=== PATIENT | female | born 1985 | race African-American/Black ===

== ENCOUNTER 2018-10-09 10:33 | Inpatient (IN) | payer OTHER ==
[2018-10-09 11:27] VITALS: BMI 34.9
--- NOTE | 2018-10-09 12:37 | HP ---
CIWA Score Nausea/Vomitin-Int. Nausea w/Dry Heave Muscle Tremors: 4-Moderate,w/Arms Extend Anxiety: 1-Mildly Anxious Agitation: 1-Slight > Activity Paroxysmal Sweats: No Perspiration Orientation: 0-Oriented Tacttile Disturbances: 1-Very Mild Itch/Numbness Auditory Disturbances: 0-None Visual Disturbances: 0-None Headache: 2-Mild CIWA-Ar Total Score: 13 - Admission Criteria OASAS Guidelines: Admission for Medically Managed Detox: Requires at least one of the followin. CIWA greater than 12 2. Seizures within the past 24 hours 3. Delirium tremens within the past 24 hours 4. Hallucinations within the past 24 hours 5. Acute intervention needed for co occurring medical disorder 6. Acute intervention needed for co occurring psychiatric disorder 7. Severe withdrawal that cannot be handled at a lower level of care (continued vomiting, continued diarrhea, abnormal vital signs) requiring intravenous medication and/or fluids 8. Admission ROS S - [facility] Chief Complaint: Patient is here for detox and wants to continue to rehab Allergies/Adverse Reactions: Allergies Allergy/AdvReac Type Severity Reaction Status Date / Time divalproex sodium Allergy Intermediate Rash Verified 10/09/18 11:17 [From Depakote] propranolol Allergy Intermediate Rash Verified 10/09/18 11:17 risperidone [From Risperdal] Allergy Intermediate Rash Verified 10/09/18 11:17 History of Present Illness: 32 year old female with alcohol dependence seeking detox and having withdrawal symptoms. She has previous admission in 2016 in our facility. She claims the last detox was 2 years ago. She has no history of seizures but has had blackouts in the past. She has a history of Asthma. She smokes approximate 3-5 cigarettes a day. She wishes to get nicotine patches. She has a history of psychiatric conditions: anxiety and depression. She has been sober for as long as 16 months. Exam Limitations: No Limitations - Ebola screening Have you traveled outside of the country in the last 21 days: No (N) Have you had contact with anyone from an Ebola affected area: No Do you have a fever: No - Review of Systems Constitutional: Chills, Loss of Appetite EENT: reports: No Symptoms Reported Respiratory: reports: Cough, SOB with Exertion Cardiac: reports: No Symptoms Reported GI: reports: Nausea, Poor Appetite : reports: No Symptoms Reported Musculoskeletal: reports: Muscle Pain Integumentary: reports: Dryness Neuro: reports: Headache, Tremors Endocrine: reports: Intolerance to Cold, Increased Thirst Hematology: reports: No Symptoms Reported Psychiatric: reports: Judgement Intact, Mood/Affect Appropiate, Orientated x3, Anxious, Depressed Patient History - Patient Medical History Hx Anemia: No Hx Asthma: Yes Hx Chronic Obstructive Pulmonary Disease (COPD): No Hx Cancer: No Hx Cardiac Disorders: No Hx Congestive Heart Failure: No Hx Hypertension: No Hx Hypercholesterolemia: No Hx Pacemaker: No HX Cerebrovascular Accident: No Hx Seizures: No Hx Dementia: No Hx Diabetes: No Hx Gastrointestinal Disorders: No Hx Liver Disease: No Hx Genitourinary Disorders: No Hx Sexually Transmitted Disorders: No Hx Renal Disease (ESRD): No Hx Thyroid Disease: No Hx Human Immunodeficiency Virus (HIV): No (last tested 09/19/18 negative) Hx Hepatitis C: Yes (immune and did not require treatment) Hx Depression: Yes Hx Suicide Attempt: No Hx Bipolar Disorder: Yes Hx Schizophrenia: No Other Medical History: She has no suicidal or homicidal ideation - Patient Surgical History Past Surgical History: No Hx Neurologic Surgery: No Hx Cataract Extraction: No Hx Cardiac Surgery: No Hx Lung Surgery: No Hx Breast Surgery: No Hx Breast Biopsy: No Hx Abdominal Surgery: No Hx Appendectomy: No Hx Cholecystectomy: No Hx Genitourinary Surgery: No Hx Section: No Hx Orthopedic Surgery: No Hx Hysterectomy: No Anesthesia Reaction: No - PPD History Previous Implant?: Yes Documented Results: Negative w/o proof Implanted On Prior [facility] Admission?: Yes Date: 01/16/16 Results: 00 mm PPD to be Administered?: No - Reproductive History Patient is a Female of Child Bearing Age (11 -55 yrs old): Yes Last Menstrual Period: 09/08/18 (late menstruation this month) Patient : No - Smoking Cessation Smoking history: Current every day smoker Have you smoked in the past 12 months: Yes Aproximately how many cigarettes per day: 5 Cigars Per Day: 0 Hx Chewing Tobacco Use: No Initiated information on smoking cessation: Yes 'Breaking Loose' booklet given: 10/09/18 - Substance & Tx. History Hx Alcohol Use: Yes Hx Substance Use: No Substance Use Type: Alcohol Hx Substance Use Treatment: Yes - Substances abused Alcohol Substance route: Oral Frequency: 1-2 times per week Amount used: 1 PINT OF VODKA, 1/ OZ BEER Age of first use: 17 Date of last use: 10/08/18 Family Disease History - Family Disease History Family Disease History: Diabetes: Mother, Respiratory: Daughter, Other: Father ( NEVER MEET) Admission Physical Exam [facility] - Vital Signs Vital Signs: Vital Signs - 24 hr 10/09/18 11:12 Temperature 99.1 F Pulse Rate 87 Respiratory 17 Rate Blood Pressure 114/71 - Physical General Appearance: Yes: No Apparent Distress, Mild Distress, Obese, Tremorous, Irritable, Anxious HEENTM: Yes: Within Normal Limits, Normal ENT Inspection, EDWARD Respiratory: Yes: Chest Non-Tender, Lungs Clear, Normal Breath Sounds, No Respiratory Distress, No Accessory Muscle Use Neck: Yes: Within Normal Limits, Supple, Trachea in good position Breast: Yes: Breast Exam Deferred Cardiology: Yes: Regular Rhythm, Regular Rate, S1, S2, Murmur Abdominal: Yes: Within Normal Limits, Normal Bowel Sounds, Non Tender, Soft Genitourinary: Yes: Within Normal Limits Back: Yes: Within Normal Limits, Muscle Spasm Musculoskeletal: Yes: full range of Motion, Gait Steady, Back pain, Muscle Pain Extremities: Yes: Tremors Neurological: Yes: legal contracts specialist II-XII NML intact, Fully Oriented, Alert, Motor Strength 5/5, Normal Mood/Affect, Normal Response Integumentary: Yes: Dry Lymphatic: Yes: Within Normal Limits - Diagnostic (1) Blackout Current Visit: Yes Status: Acute (2) Alcohol dependence with withdrawal Current Visit: No Status: Acute Qualifiers: Complication of substance-induced condition: uncomplicated Qualified Code(s ): F10.230 - Alcohol dependence with withdrawal, uncomplicated (3) Asthma Current Visit: No Status: Chronic Qualifiers: Asthma severity: mild intermittent Asthma complication type: with status asthmaticus Qualified Code(s): J45.22 - Mild intermittent asthma with status asthmaticus (4) Bipolar disorder Current Visit: No Status: Chronic (5) Depression Current Visit: No Status: Chronic Qualifiers: Depression Type: depression during Trimester: first trimester Qualified Code(s): O99.341 - Other mental disorders complicating , first trimester (6) Nicotine dependence Current Visit: No Status: Chronic Qualifiers: Nicotine product type: cigarettes Substance use status: uncomplicated Qualified Code(s): F17.210 - Nicotine dependence, cigarettes, uncomplicated Cleared for Admission [facility] - Detox or Rehab [facility] Level of Care: Medically Managed Detox Regimen/Protocol: Librium Breathalyzer - Breathalyzer Breathalyzer: 0 Urine Drug Screen - Test Device Lot number: [id number] Expiration date: 07/23/20 - Control Is test valid?: Yes - Results Drug screen NEGATIVE: Yes Inpatient Rehab Admission - Rehab Decision to Admit Inpatient rehab admission?: No
[2018-10-09] MEDS ORDERED: chlordiazePOXIDE HCL 10 MG CAPSULE PO PRN (13:00)
[2018-10-09] MEDS ORDERED: MAGNESIUM CITRATE 300 ML BOTTLE PO PRN (13:00)
[2018-10-09] MEDS ORDERED: MAGNESIUM HYDROX 2400MG/30ML ORAL SUSPENSION 30 ML CUP PO PRN (13:00)
[2018-10-09] MEDS ORDERED: MENTHOL/PHENOL 1 EACH UD MM PRN (13:00)
[2018-10-09] MEDS ORDERED: MELATONIN 5 MG TABLETS PO PRN (13:00)
[2018-10-09] MEDS ORDERED: MAG HYDROX/AL HYDROX/SIMETH 30 ML UNIT-DOSE CUP PO PRN (13:00)
[2018-10-09] MEDS ORDERED: ACETAMINOPHEN 325 MG TABLET (FP) PO PRN (13:00)
[2018-10-09] MEDS ORDERED: hydrOXYzine HCL 25 MG TABLET (FP) PO PRN (13:00)
[2018-10-09] MEDS ORDERED: BISMUTH SUBSALICYLATE 262 MG/15 ML BTL PO PRN (13:00)
[2018-10-09] MEDS ORDERED: METHOCARBAMOL 500 MG TABLET PO PRN (13:00)
[2018-10-09] MEDS ORDERED: ALBUTEROL SO4 8 GM HFA INHALER IH PRN (13:07)
[2018-10-09] MEDS: valACYclovir HCL 500 MG TABLET (FP) PO SCH (14:25)
[2018-10-09] MEDS: NICOTINE 7 MG/24 HOURS TOPICAL PATCH TD SCH (14:26)
[2018-10-09] MEDS: ACETAMINOPHEN 325 MG TABLET (FP) PO PRN (14:27)
[2018-10-09 15:39] LABS: HEMATOCRIT 38.5 % (32.4-45.2); HEMOGLOBIN 12.8 GM/dL (10.7-15.3); MCH 28.6 pg (25.7-33.7); MCHC 33.2 g/dl (32.0-36.0); MEAN CELL VOLUME 86.2 fl (80-96); MEAN PLT VOLUME 9.1 fl (7.5-11.1); PLATELET COUNT 244 K/MM3 (134-434); RBC 4.46 M/mm3 (3.60-5.2); RDW 13.5 % (11.6-15.6); WHITE BLOOD COUNT 8.3 K/mm3 (4.0-10.0)
[2018-10-09 15:50] LABS: ALBUMIN 3.5 g/dl (3.4-5.0); BILIRUBIN,TOTAL 0.6 mg/dL (0.2-1); BLOOD UREA NITROGEN 14.4 mg/dL (7-18); CALCIUM 7.8 mg/dL (8.5-10.1); CREATININE 0.6 mg/dL (0.55-1.3); POTASSIUM 4.3 mmol/L (3.5-5.1); TOT PROT 6.9 g/dl (6.4-8.2)
[2018-10-09] MEDS: chlordiazePOXIDE HCL 25 MG CAPSULE PO SCH (22:23)
[2018-10-09] MEDS: THIAMINE HCL 100 MG TABLET (FP) PO SCH (22:23)
[2018-10-10] MEDS: chlordiazePOXIDE HCL 25 MG CAPSULE PO SCH ×3 (05:18→21:04)
[2018-10-10] MEDS: valACYclovir HCL 500 MG TABLET (FP) PO SCH (10:14)
[2018-10-10] MEDS: NICOTINE 7 MG/24 HOURS TOPICAL PATCH TD SCH (10:14)
[2018-10-10] MEDS: PRENATAL VITAMINS W/ FOLIC ACID TABLET (FP) PO SCH (10:14)
[2018-10-10] MEDS: ACETAMINOPHEN 325 MG TABLET (FP) PO PRN (10:15)
--- NOTE | 2018-10-10 12:42 | PN ---
[facility] CIWA - CIWA Score Nausea/Vomitin Muscle Tremors: 2 Anxiety: 3 Agitation: 0-Normal Activity Paroxysmal Sweats: 1-Minimal Palms Moist Orientation: 0-Oriented Tacttile Disturbances: 1-Very Mild Itch/Numbness Auditory Disturbances: 0-None Visual Disturbances: 0-None Headache: 1-Very Mild CIWA-Ar Total Score: 11 S Progress Note (SOAP) Subjective: c/o of nausea and vomiting, interrupted sleep, chills Objective: 10/10/18 12:40 Vital Signs Temp 98.8 F 10/10/18 09:18 Pulse 85 10/10/18 09:18 Resp 18 10/10/18 09:18 BP 120/81 10/10/18 09:18 Pulse Ox Laboratory Last Values WBC 8.3 K/mm3 (4.0-10.0) 10/09/18 13:00 RBC 4.46 M/mm3 (3.60-5.2) 10/09/18 13:00 Hgb 12.8 GM/dL (10.7-15.3) 10/09/18 13:00 Hct 38.5 % (32.4-45.2) 10/09/18 13:00 MCV 86.2 fl (80-96) 10/09/18 13:00 MCH 28.6 pg (25.7-33.7) 10/09/18 13:00 MCHC 33.2 g/dl (32.0-36.0) 10/09/18 13:00 RDW 13.5 % (11.6-15.6) 10/09/18 13:00 Plt Count 244 K/MM3 (134-434) D 10/09/18 13:00 MPV 9.1 fl (7.5-11.1) 10/09/18 13:00 Sodium 139 mmol/L (136-145) 10/09/18 13:00 Potassium 4.3 mmol/L (3.5-5.1) 10/09/18 13:00 Chloride 107 mmol/L (98-107) 10/09/18 13:00 Carbon Dioxide 27 mmol/L (21-32) 10/09/18 13:00 Anion Gap 4 MMOL/L (8-16) L 10/09/18 13:00 BUN 14.4 mg/dL (7-18) 10/09/18 13:00 Creatinine 0.6 mg/dL (0.55-1.3) 10/09/18 13:00 Est GFR (CKD-EPI)AfAm 140.77 10/09/18 13:00 Est GFR (CKD-EPI)NonAf 121.46 10/09/18 13:00 Random Glucose 75 mg/dL (74-106) 10/09/18 13:00 Calcium 7.8 mg/dL (8.5-10.1) L 10/09/18 13:00 Total Bilirubin 0.6 mg/dL (0.2-1) 10/09/18 13:00 AST 12 U/L (15-37) L 10/09/18 13:00 ALT 19 U/L (13-61) 10/09/18 13:00 Alkaline Phosphatase 70 U/L (45-117) 10/09/18 13:00 Total Protein 6.9 g/dl (6.4-8.2) 10/09/18 13:00 Albumin 3.5 g/dl (3.4-5.0) 10/09/18 13:00 RPR Titer Nonreactive (NONREACTIVE) 10/09/18 13:00 HIV 1&2 Antibody Screen Negative 10/09/18 13:00 HIV P24 Antigen Negative 10/09/18 13:00 Labs reviewed Assessment: 10/10/18 12:41 Patient Aox3 , no distress, full ROM, ambulating in the unit Plan: increase po fluids continue detox continue to monitor
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
[2018-10-10] MEDS: IBUPROFEN 400 MG TABLET (FP) PO PRN (21:03)
[2018-10-10] MEDS: THIAMINE HCL 100 MG TABLET (FP) PO SCH (21:04)
[2018-10-10] MEDS: FLUoxetine HCL 20 MG CAPSULE (FP) PO SCH (21:04)
[2018-10-11] MEDS: chlordiazePOXIDE 5 MG CAPSULE PO SCH ×3 (05:04→22:27)
[2018-10-11] MEDS: IBUPROFEN 400 MG TABLET (FP) PO PRN ×2 (07:01→20:34)
[2018-10-11] MEDS: valACYclovir HCL 500 MG TABLET (FP) PO SCH (10:15)
[2018-10-11] MEDS: FLUoxetine HCL 20 MG CAPSULE (FP) PO SCH ×2 (10:15→22:27)
[2018-10-11] MEDS: PRENATAL VITAMINS W/ FOLIC ACID TABLET (FP) PO SCH (10:15)
[2018-10-11] MEDS: ACETAMINOPHEN 325 MG TABLET (FP) PO PRN (10:15)
[2018-10-11] MEDS: NICOTINE 7 MG/24 HOURS TOPICAL PATCH TD SCH (10:17)
--- NOTE | 2018-10-11 14:14 | PN ---
S CIWA - CIWA Score Nausea/Vomitin Muscle Tremors: 2 Anxiety: 2 Agitation: 1-Slight > Activity Paroxysmal Sweats: 2 (Chills.) Orientation: 0-Oriented Tacttile Disturbances: 0-None Auditory Disturbances: 0-None Visual Disturbances: 0-None Headache: 0-None Present CIWA-Ar Total Score: 10 S Progress Note (SOAP) Subjective: Nausea, Chills, Interrupted Sleep, H/A. Objective: PATIENT A & O X 3, OBSERVED AMBULATING ON UNIT UNASSISTED. IN NO ACUTE DISTRESS. 10/11/18 14:15 Vital Signs Temperature 98.7 F 10/11/18 13:37 Pulse Rate 87 10/11/18 13:37 Respiratory Rate 16 10/11/18 13:37 Blood Pressure 115/74 10/11/18 13:37 O2 Sat by Pulse Oximetry (%) Laboratory Tests 10/09/18 10/09/18 10/09/18 13:00 13:00 13:00 WBC 8.3 RBC 4.46 Hgb 12.8 Hct 38.5 MCV 86.2 MCH 28.6 MCHC 33.2 RDW 13.5 Plt Count 244 D MPV 9.1 Sodium 139 Potassium 4.3 Chloride 107 Carbon Dioxide 27 Anion Gap 4 L BUN 14.4 Creatinine 0.6 Est GFR (CKD-EPI)AfAm 140.77 Est GFR (CKD-EPI)NonAf 121.46 Random Glucose 75 Calcium 7.8 L Total Bilirubin 0.6 AST 12 L ALT 19 Alkaline Phosphatase 70 Total Protein 6.9 Albumin 3.5 RPR Titer Nonreactive HIV 1&2 Antibody Screen HIV P24 Antigen 10/09/18 13:00 WBC RBC Hgb Hct MCV MCH MCHC RDW Plt Count MPV Sodium Potassium Chloride Carbon Dioxide Anion Gap BUN Creatinine Est GFR (CKD-EPI)AfAm Est GFR (CKD-EPI)NonAf Random Glucose Calcium Total Bilirubin AST ALT Alkaline Phosphatase Total Protein Albumin RPR Titer HIV 1&2 Antibody Screen Negative HIV P24 Antigen Negative LABS NOTED. RESULTS OF TB / QFT PENDING. 10/11/18 14:17 Assessment: 10/11/18 14:15 WITHDRAWAL SYMPTOMS. HYPOCALCEMIA. 10/11/18 14:16 Plan: CONTINUE DETOX. INCREASE DAILY PO WATER INTAKE. OS-BRITNEY, 500 MG PO BID FOR LOW ADMISSION CALCIUM LEVEL.
[2018-10-11] MEDS: CALCIUM 500MG/VIT-D 200 UNITS COMBO TABLET (FP) PO SCH (22:27)
[2018-10-11] MEDS: THIAMINE HCL 100 MG TABLET (FP) PO SCH (22:27)
[2018-10-12] MEDS ORDERED: chlordiazePOXIDE HCL 10 MG CAPSULE PO PRN
[2018-10-12] MEDS: chlordiazePOXIDE HCL 10 MG CAPSULE PO SCH ×2 (05:29→13:37)
[2018-10-12 09:18] VITALS: PULSE 89
[2018-10-12] MEDS: NICOTINE 7 MG/24 HOURS TOPICAL PATCH TD SCH (10:51)
[2018-10-12] MEDS: valACYclovir HCL 500 MG TABLET (FP) PO SCH (10:51)
[2018-10-12] MEDS: PRENATAL VITAMINS W/ FOLIC ACID TABLET (FP) PO SCH (10:51)
[2018-10-12] MEDS: FLUoxetine HCL 20 MG CAPSULE (FP) PO SCH (10:51)
[2018-10-12] MEDS: CALCIUM 500MG/VIT-D 200 UNITS COMBO TABLET (FP) PO SCH (13:37)
[2018-10-12 14:04] VITALS: BP 108/68; TEMP 98.5
--- NOTE | 2018-10-12 14:43 | PN ---
S CIWA - CIWA Score Nausea/Vomitin-No Nausea/No Vomiting Muscle Tremors: None Anxiety: 1-Mildly Anxious Agitation: 1-Slight > Activity Paroxysmal Sweats: No Perspiration Orientation: 0-Oriented Tacttile Disturbances: 0-None Auditory Disturbances: 0-None Visual Disturbances: 1-Very Mild Sensitivity Headache: 0-None Present CIWA-Ar Total Score: 3 [facility] Progress Note (SOAP) Subjective: Anxious (Mild). Objective: PATIENT A & O X 3, OBSERVED AMBULATING ON UNIT UNASSISTED. IN NO ACUTE DISTRESS. 10/12/18 14:42 Vital Signs Temperature 98.5 F 10/12/18 14:04 Pulse Rate 89 10/12/18 14:04 Respiratory Rate 18 10/12/18 14:04 Blood Pressure 108/68 10/12/18 14:04 O2 Sat by Pulse Oximetry (%) Laboratory Tests 10/09/18 10/09/18 10/09/18 07:00 13:00 13:00 WBC 8.3 RBC 4.46 Hgb 12.8 Hct 38.5 MCV 86.2 MCH 28.6 MCHC 33.2 RDW 13.5 Plt Count 244 D MPV 9.1 Sodium 139 Potassium 4.3 Chloride 107 Carbon Dioxide 27 Anion Gap 4 L BUN 14.4 Creatinine 0.6 Est GFR (CKD-EPI)AfAm 140.77 Est GFR (CKD-EPI)NonAf 121.46 Random Glucose 75 Calcium 7.8 L Total Bilirubin 0.6 AST 12 L ALT 19 Alkaline Phosphatase 70 Total Protein 6.9 Albumin 3.5 RPR Titer HIV 1&2 Antibody Screen HIV P24 Antigen TB (QFT) Incubation TB Test (QFT) Nil 0.04 TB Test (QFT) Mitogen >10.00 TB Test (QFT) Antigen 0.09 TB Test (QFT) Negative TB Positive Criteria 10/09/18 10/09/18 13:00 13:00 WBC RBC Hgb Hct MCV MCH MCHC RDW Plt Count MPV Sodium Potassium Chloride Carbon Dioxide Anion Gap BUN Creatinine Est GFR (CKD-EPI)AfAm Est GFR (CKD-EPI)NonAf Random Glucose Calcium Total Bilirubin AST ALT Alkaline Phosphatase Total Protein Albumin RPR Titer Nonreactive HIV 1&2 Antibody Screen Negative HIV P24 Antigen Negative TB (QFT) Incubation TB Test (QFT) Nil TB Test (QFT) Mitogen TB Test (QFT) Antigen TB Test (QFT) TB Positive Criteria LABS NOTED. Assessment: 10/12/18 14:42 COMPLETION OF DETOX REGIMEN. Plan: SINCE PATIENT REPORTS THAT CURRENT WITHDRAWAL / DETOX SYMPTOMS ARE MINIMAL IN DEGREE AND THAT HE FEELS WELL OVERALL, AT PATIENTS REQUEST, SHE WAS GRANTED AN EARLY DISCHARGE FROM DETOX UNIT TODAY SO THAT HE MAY PROCEED ON TO AFTERCARE PLAN - [facility]
--- NOTE | 2018-10-12 14:45 | DS ---
[facility] Detox Discharge Summary Admission Date: 10/09/18 Discharge Date: 10/12/18 - History Present History: Alcohol Dependence Additional Comments: PATIENT REPORTS THAT CURRENT WITHDRAWAL / DETOX SYMPTOMS ARE MINIMAL IN DEGREE AND THAT HE FEELS WELL OVERALL AT TIME OF DISCHARGE FROM DETOX UNIT. PATIENT GOING ON TO [facility] ([place], [place]) FOR AFTERCARE. PATIENT WAS DISCHARGED FROM DETOX UNIT TO BE TAKEN OVER TO REHAB UNIT IN STABLE MEDICAL CONDITION. Pertinent Past History: Asthma, Hep C, Depressive Disorder, Bipolar Disorder, Nicotine Dependence, History Of Blackout, Hypocalcemia. - Physical Exam Results Vital Signs: Vital Signs Temperature 98.5 F 10/12/18 14:04 Pulse Rate 89 10/12/18 14:04 Respiratory Rate 18 10/12/18 14:04 Blood Pressure 108/68 10/12/18 14:04 O2 Sat by Pulse Oximetry (%) Pertinent Admission Physical Exam Findings: WITHDRAWAL SYMPTOMS. Laboratory Tests 10/09/18 10/09/18 10/09/18 07:00 13:00 13:00 WBC 8.3 RBC 4.46 Hgb 12.8 Hct 38.5 MCV 86.2 MCH 28.6 MCHC 33.2 RDW 13.5 Plt Count 244 D MPV 9.1 Sodium 139 Potassium 4.3 Chloride 107 Carbon Dioxide 27 Anion Gap 4 L BUN 14.4 Creatinine 0.6 Est GFR (CKD-EPI)AfAm 140.77 Est GFR (CKD-EPI)NonAf 121.46 Random Glucose 75 Calcium 7.8 L Total Bilirubin 0.6 AST 12 L ALT 19 Alkaline Phosphatase 70 Total Protein 6.9 Albumin 3.5 RPR Titer HIV 1&2 Antibody Screen HIV P24 Antigen TB (QFT) Incubation TB Test (QFT) Nil 0.04 TB Test (QFT) Mitogen >10.00 TB Test (QFT) Antigen 0.09 TB Test (QFT) Negative TB Positive Criteria 10/09/18 10/09/18 13:00 13:00 WBC RBC Hgb Hct MCV MCH MCHC RDW Plt Count MPV Sodium Potassium Chloride Carbon Dioxide Anion Gap BUN Creatinine Est GFR (CKD-EPI)AfAm Est GFR (CKD-EPI)NonAf Random Glucose Calcium Total Bilirubin AST ALT Alkaline Phosphatase Total Protein Albumin RPR Titer Nonreactive HIV 1&2 Antibody Screen Negative HIV P24 Antigen Negative TB (QFT) Incubation TB Test (QFT) Nil TB Test (QFT) Mitogen TB Test (QFT) Antigen TB Test (QFT) TB Positive Criteria LABS NOTED. - Treatment Hospital Course: Detox Protocol Followed, Detoxed Safely, Responded well, Discharged Condition Good, Rehab Referral Accepted Patient has Accepted a Rehab Referral to: [facility] ([place], [place]). - Medication Discharge Medications: Ambulatory Orders Albuterol Sulfate Inhaler - [Ventolin Hfa Inhaler -] 2 inh PO Q6H PRN 11/22/15 Fluoxetine HCl [Prozac -] 80 mg PO DAILY 11/22/15 Valacyclovir HCl [Valtrex -] 500 mg PO DAILY 10/09/18 - Diagnosis (1) Alcohol dependence with withdrawal Status: Acute Qualifiers: Complication of substance-induced condition: uncomplicated Qualified Code(s ): F10.230 - Alcohol dependence with withdrawal, uncomplicated (2) Blackout Status: Acute (3) Hypocalcemia Status: Acute (4) Substance induced mood disorder Status: Acute (5) Asthma Status: Chronic Qualifiers: Asthma severity: mild intermittent Asthma complication type: with status asthmaticus Qualified Code(s): J45.22 - Mild intermittent asthma with status asthmaticus (6) Bipolar disorder Status: Chronic Qualifiers: Active/Remission status: remission status unspecified Qualified Code(s): F31.9 - Bipolar disorder, unspecified (7) Depressive disorder Status: Chronic (8) Nicotine dependence Status: Chronic Qualifiers: Nicotine product type: cigarettes Substance use status: uncomplicated Qualified Code(s): F17.210 - Nicotine dependence, cigarettes, uncomplicated - AMA Did Patient Leave Against Medical Advice: No
[2018-10-13] MEDS ORDERED: chlordiazePOXIDE HCL 10 MG CAPSULE PO ONE (05:00)
== END 2018-10-12 14:08 | disposition other institution (70) | DRG 775 ==
LOC: YASAS 10:33 → Y3N 13:14
PROVIDERS: ADMIT Surgery; ATTEND Surgery
PROC: HZ2ZZZZ Detoxification Services for Substance Abuse Treatment (ICD-10-PCS; principal; 2018-10-09)
DX: F10.230 Alcohol dependence with withdrawal, uncomplicated (principal); F17.210 Nicotine dependence, cigarettes, uncomplicated; F19.24 Other psychoactive substance dependence with psychoactive substance-induced mood disorder; F31.9 Bipolar disorder, unspecified; J45.22 Mild intermittent asthma with status asthmaticus; R73.9 Hyperglycemia, unspecified; R01.1 Cardiac murmur, unspecified; E66.9 Obesity, unspecified; Z68.34 Body mass index [BMI] 34.0-34.9, adult
CPT/HCPCS: 36415; 80053; 85027; 86480; 86593; 87389

== ENCOUNTER 2018-10-12 14:15 | Inpatient (IN) | payer OTHER ==
[2018-10-12] MEDS ORDERED: MAG HYDROX/AL HYDROX/SIMETH 30 ML UNIT-DOSE CUP PO PRN (14:48)
[2018-10-12] MEDS ORDERED: IBUPROFEN 400 MG TABLET (FP) PO PRN (14:48)
[2018-10-12] MEDS ORDERED: MAGNESIUM CITRATE 300 ML BOTTLE PO PRN (14:48)
[2018-10-12] MEDS ORDERED: guaiFENesin 200 MG/10 ML 10 ML UNIT-DOSE CUPS PO PRN (14:48)
[2018-10-12] MEDS ORDERED: LOPERAMIDE HCL 2 MG CAPSULE PO PRN (14:48)
[2018-10-12] MEDS ORDERED: MENTHOL/PHENOL 1 EACH UD MM PRN (14:48)
[2018-10-12] MEDS ORDERED: MAGNESIUM HYDROX 2400MG/30ML ORAL SUSPENSION 30 ML CUP PO PRN (14:48)
[2018-10-12] MEDS ORDERED: P-EPHED 60MG/TRIPROLIDI 2.5MG TABLET PO PRN (14:48)
[2018-10-12] MEDS ORDERED: DICYCLOMINE HCL 10 MG CAPSULE PO PRN (14:49)
--- NOTE | 2018-10-12 14:51 | HP ---
[facility] Rehab Assess/Revision - Admission History Admitted to Rehab from: [facility] Date of Admission to Rehab: 10/12/2018 - Vital signs Vital Signs: NOTED; STABLE. - Findings Detox History & Physical reviewed: Yes Concur with findings: Yes Comments/Additional Findings: PATIENT'S MEDICAL / MEDICATION HISTORY REVIEWED PRIOR TO DISCHARGE FROM DETOX UNIT. PATIENT WAS DISCHARGED FROM DETOX UNIT TO BE TAKEN OVER TO REHAB UNIT IN STABLE MEDICAL CONDITION. Inpatient Rehab Admission - Rehab Decision to Admit Inpatient rehab admission?: Yes - Initial Determination Are CD services needed?: Yes Free of communicable disease: Yes Not in need of hospitalization: Yes - Rehab Admission Criteria Previous failed treatment: Yes Poor recovery environment: Yes Comorbidities: Yes Lacks judgement: No Patient is meeting Inpatient Rehab admission criteria:: Yes
[2018-10-12] MEDS: THIAMINE HCL 100 MG TABLET (FP) PO SCH (21:32)
[2018-10-12] MEDS: FLUoxetine HCL 20 MG CAPSULE (FP) PO SCH (21:33)
[2018-10-12] MEDS: CALCIUM 500MG/VIT-D 200 UNITS COMBO TABLET (FP) PO SCH (21:33)
[2018-10-12] MEDS ORDERED: MELATONIN 5 MG TABLETS PO PRN (22:00)
[2018-10-13] MEDS: CALCIUM 500MG/VIT-D 200 UNITS COMBO TABLET (FP) PO SCH ×2 (09:41→21:33)
[2018-10-13] MEDS: valACYclovir HCL 500 MG TABLET (FP) PO SCH (09:41)
[2018-10-13] MEDS: FLUoxetine HCL 20 MG CAPSULE (FP) PO SCH ×2 (09:41→21:33)
[2018-10-13] MEDS: PRENATAL VITAMINS W/ FOLIC ACID TABLET (FP) PO SCH (09:41)
[2018-10-13] MEDS: NICOTINE 7 MG/24 HOURS TOPICAL PATCH TD SCH (09:42)
[2018-10-13] MEDS: THIAMINE HCL 100 MG TABLET (FP) PO SCH (21:32)
[2018-10-14] MEDS: valACYclovir HCL 500 MG TABLET (FP) PO SCH (09:42)
[2018-10-14] MEDS: ALBUTEROL SO4 8 GM HFA INHALER IH PRN (09:43)
[2018-10-14] MEDS: CALCIUM 500MG/VIT-D 200 UNITS COMBO TABLET (FP) PO SCH ×2 (09:43→21:18)
[2018-10-14] MEDS: FLUoxetine HCL 20 MG CAPSULE (FP) PO SCH ×2 (09:43→21:18)
[2018-10-14] MEDS: NICOTINE 7 MG/24 HOURS TOPICAL PATCH TD SCH (09:43)
[2018-10-14] MEDS: PRENATAL VITAMINS W/ FOLIC ACID TABLET (FP) PO SCH (09:43)
[2018-10-14] MEDS: THIAMINE HCL 100 MG TABLET (FP) PO SCH (21:18)
[2018-10-15] MEDS: NICOTINE 7 MG/24 HOURS TOPICAL PATCH TD SCH (09:36)
[2018-10-15] MEDS: PRENATAL VITAMINS W/ FOLIC ACID TABLET (FP) PO SCH (09:36)
[2018-10-15] MEDS: CALCIUM 500MG/VIT-D 200 UNITS COMBO TABLET (FP) PO SCH ×2 (09:36→21:15)
[2018-10-15] MEDS: FLUoxetine HCL 20 MG CAPSULE (FP) PO SCH ×2 (09:36→21:15)
[2018-10-15] MEDS: valACYclovir HCL 500 MG TABLET (FP) PO SCH (09:37)
[2018-10-15] MEDS: ACETAMINOPHEN 325 MG TABLET (FP) PO PRN (11:50)
[2018-10-15] MEDS ORDERED: IBUPROFEN 600 MG TABLET (FP) PO PRN (12:22)
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
[2018-10-15] MEDS: ALBUTEROL SO4 8 GM HFA INHALER IH PRN (13:16)
[2018-10-15] MEDS: MINERAL OIL/PETROLAT/WATER TOPICAL CREAM 113 GM JAR TP SCH (13:30)
[2018-10-15] MEDS ORDERED: PT OWN MED DRAWER 7, Y5N ONE (15:47)
[2018-10-15] MEDS: COLLOIDAL OATMEAL 1 BAR EACH TP PRN (15:48)
[2018-10-15] MEDS: THIAMINE HCL 100 MG TABLET (FP) PO SCH (21:15)
[2018-10-16] MEDS: MINERAL OIL/PETROLAT/WATER TOPICAL CREAM 113 GM JAR TP SCH (09:28)
[2018-10-16] MEDS: NICOTINE 7 MG/24 HOURS TOPICAL PATCH TD SCH (09:28)
[2018-10-16] MEDS: CALCIUM 500MG/VIT-D 200 UNITS COMBO TABLET (FP) PO SCH ×2 (09:29→21:50)
[2018-10-16] MEDS: PRENATAL VITAMINS W/ FOLIC ACID TABLET (FP) PO SCH (09:29)
[2018-10-16] MEDS: FLUoxetine HCL 20 MG CAPSULE (FP) PO SCH ×2 (09:29→21:50)
[2018-10-16] MEDS: valACYclovir HCL 500 MG TABLET (FP) PO SCH (09:30)
[2018-10-16] MEDS: ACETAMINOPHEN 325 MG TABLET (FP) PO PRN (09:31)
[2018-10-16] MEDS: ALBUTEROL SO4 8 GM HFA INHALER IH PRN (09:32)
[2018-10-16] MEDS: THIAMINE HCL 100 MG TABLET (FP) PO SCH (21:50)
[2018-10-17] MEDS ORDERED: PT OWN MED DRAWER 7, Y5N ONE (09:06)
[2018-10-17] MEDS: PRENATAL VITAMINS W/ FOLIC ACID TABLET (FP) PO SCH (09:27)
[2018-10-17] MEDS: ACETAMINOPHEN 325 MG TABLET (FP) PO PRN (09:27)
[2018-10-17] MEDS: valACYclovir HCL 500 MG TABLET (FP) PO SCH (09:27)
[2018-10-17] MEDS: CALCIUM 500MG/VIT-D 200 UNITS COMBO TABLET (FP) PO SCH ×2 (09:28→21:59)
[2018-10-17] MEDS: FLUoxetine HCL 20 MG CAPSULE (FP) PO SCH ×2 (09:28→21:58)
[2018-10-17] MEDS: ALBUTEROL SO4 8 GM HFA INHALER IH PRN (09:29)
[2018-10-17] MEDS: MINERAL OIL/PETROLAT/WATER TOPICAL CREAM 113 GM JAR TP SCH (09:30)
[2018-10-17] MEDS: NICOTINE 7 MG/24 HOURS TOPICAL PATCH TD SCH (09:31)
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
--- NOTE | 2018-10-17 13:46 | CONSULT ---
[facility] Psychiatric Consult - Data Date of interview: 10/17/18 Admission source: Self-referred Identifying data: Ms Weiss is a 33 years old single Black female
[2018-10-17] MEDS: THIAMINE HCL 100 MG TABLET (FP) PO SCH (21:58)
[2018-10-18] MEDS: NICOTINE 7 MG/24 HOURS TOPICAL PATCH TD SCH (09:56)
[2018-10-18] MEDS: valACYclovir HCL 500 MG TABLET (FP) PO SCH (09:56)
[2018-10-18] MEDS: CALCIUM 500MG/VIT-D 200 UNITS COMBO TABLET (FP) PO SCH ×2 (09:56→21:11)
[2018-10-18] MEDS: MINERAL OIL/PETROLAT/WATER TOPICAL CREAM 113 GM JAR TP SCH (09:56)
[2018-10-18] MEDS: FLUoxetine HCL 20 MG CAPSULE (FP) PO SCH ×2 (09:57→21:11)
[2018-10-18] MEDS: PRENATAL VITAMINS W/ FOLIC ACID TABLET (FP) PO SCH (09:57)
[2018-10-18] MEDS: ALBUTEROL SO4 8 GM HFA INHALER IH PRN (11:52)
[2018-10-18] MEDS: THIAMINE HCL 100 MG TABLET (FP) PO SCH (21:11)
[2018-10-18] MEDS: COLLOIDAL OATMEAL 1 BAR EACH TP PRN (21:14)
[2018-10-19] MEDS: valACYclovir HCL 500 MG TABLET (FP) PO SCH (09:24)
[2018-10-19] MEDS: PRENATAL VITAMINS W/ FOLIC ACID TABLET (FP) PO SCH (09:25)
[2018-10-19] MEDS: CALCIUM 500MG/VIT-D 200 UNITS COMBO TABLET (FP) PO SCH (09:25)
[2018-10-19] MEDS: NICOTINE 7 MG/24 HOURS TOPICAL PATCH TD SCH (09:25)
[2018-10-19] MEDS: MINERAL OIL/PETROLAT/WATER TOPICAL CREAM 113 GM JAR TP SCH (09:25)
[2018-10-19] MEDS: FLUoxetine HCL 20 MG CAPSULE (FP) PO SCH ×2 (09:25→21:43)
[2018-10-19] MEDS ORDERED: AZITHROMYCIN 500 MG TABLET PO ONE (10:24)
--- NOTE | 2018-10-19 10:27 | PN ---
S Progress Note Note: Abnormal Lab Results 10/15/18 13:20 C. trachomatis (ALFA) Positive H Azithromycin 1 gram PO X 1 dose ordered.
--- NOTE | 2018-10-19 11:02 | PN ---
[facility] Progress Note Note: Patient counselled on current STD status, she verbalized concerns and unwillingness to inform partners, she has h/o positive results. She has requested to take azithromycin later on tonight at 10pm. Schedule changed as per request.
[2018-10-19] MEDS: ACETAMINOPHEN 325 MG TABLET (FP) PO PRN (13:14)
[2018-10-19] MEDS: THIAMINE HCL 100 MG TABLET (FP) PO SCH (21:43)
[2018-10-19] MEDS ORDERED: AZITHROMYCIN 250 MG TABLET PO ONE (22:00)
[2018-10-20] MEDS ORDERED: PT OWN MED DRAWER 7, Y5N ONE (08:24)
[2018-10-20] MEDS: FLUoxetine HCL 20 MG CAPSULE (FP) PO SCH ×2 (09:30→21:27)
[2018-10-20] MEDS: PRENATAL VITAMINS W/ FOLIC ACID TABLET (FP) PO SCH (09:30)
[2018-10-20] MEDS: NICOTINE 7 MG/24 HOURS TOPICAL PATCH TD SCH (09:31)
[2018-10-20] MEDS: MINERAL OIL/PETROLAT/WATER TOPICAL CREAM 113 GM JAR TP SCH (09:31)
[2018-10-20] MEDS: ALBUTEROL SO4 8 GM HFA INHALER IH PRN (09:31)
[2018-10-20] MEDS: ACETAMINOPHEN 325 MG TABLET (FP) PO PRN (15:55)
[2018-10-20] MEDS: THIAMINE HCL 100 MG TABLET (FP) PO SCH (21:27)
[2018-10-21] MEDS: ALBUTEROL SO4 8 GM HFA INHALER IH PRN (07:26)
[2018-10-21] MEDS ORDERED: PT OWN MED DRAWER 7, Y5N ONE (08:37)
[2018-10-21] MEDS: FLUoxetine HCL 20 MG CAPSULE (FP) PO SCH ×2 (09:46→21:27)
[2018-10-21] MEDS: PRENATAL VITAMINS W/ FOLIC ACID TABLET (FP) PO SCH (09:46)
[2018-10-21] MEDS: MINERAL OIL/PETROLAT/WATER TOPICAL CREAM 113 GM JAR TP SCH (09:47)
[2018-10-21] MEDS: NICOTINE 7 MG/24 HOURS TOPICAL PATCH TD SCH (09:47)
[2018-10-21] MEDS: THIAMINE HCL 100 MG TABLET (FP) PO SCH (21:27)
[2018-10-21] MEDS: ACETAMINOPHEN 325 MG TABLET (FP) PO PRN (21:28)
--- NOTE | 2018-10-22 09:29 | PN ---
[facility] Progress Note (SOAP) Subjective: patient is positive for trachomatis, treated with Azithromycin 1 gram. As stated in previous note, patient has hx of unprotected sex with partners whose HIV status is unknown (see previous note). She accepted referral to see PrEP counselor. Objective: 10/22/18 09:31 Laboratory Last Values C. trachomatis (ALFA) Positive (Negative) H 10/15/18 13:20 N.gonorrhoeae DNA (ALFA) Negative (Negative) 10/15/18 13:20 T. vaginalis (ALFA) Negative (Negative) 10/15/18 13:20 Assessment: At risk for HIV infection and other STIs 10/22/18 09:31 Plan: Patient met with PrEP counselor. She will return to previous provider for PrEP referral/treatment upon discharge.
[2018-10-22] MEDS: PRENATAL VITAMINS W/ FOLIC ACID TABLET (FP) PO SCH (09:39)
[2018-10-22] MEDS: NICOTINE 7 MG/24 HOURS TOPICAL PATCH TD SCH (09:39)
[2018-10-22] MEDS: FLUoxetine HCL 20 MG CAPSULE (FP) PO SCH ×2 (09:39→21:19)
[2018-10-22] MEDS: MINERAL OIL/PETROLAT/WATER TOPICAL CREAM 113 GM JAR TP SCH (09:40)
[2018-10-22] MEDS: THIAMINE HCL 100 MG TABLET (FP) PO SCH (21:19)
[2018-10-23] MEDS ORDERED: PT OWN MED DRAWER 7, Y5N ONE (08:45)
[2018-10-23] MEDS: MINERAL OIL/PETROLAT/WATER TOPICAL CREAM 113 GM JAR TP SCH (09:30)
[2018-10-23] MEDS: FLUoxetine HCL 20 MG CAPSULE (FP) PO SCH ×2 (09:31→21:08)
[2018-10-23] MEDS: PRENATAL VITAMINS W/ FOLIC ACID TABLET (FP) PO SCH (09:31)
[2018-10-23] MEDS: NICOTINE 7 MG/24 HOURS TOPICAL PATCH TD SCH (09:31)
[2018-10-23] MEDS: ACETAMINOPHEN 325 MG TABLET (FP) PO PRN (12:40)
--- NOTE | 2018-10-23 15:49 | PN ---
S Progress Note (SOAP) Subjective: patient to be discharged tomorrow. HOSPITAL COURSE: patient attended groups, had 1:1 session with her counselor, was adherent to the treatment plan and the medication regimen. Patient was tested for HIV and STI while in rehab because of self-report of unprotected sex. She was also referred to the PrEP counselor for further education and referrals for PrEP. HIV test was negative, syphilis test was negative, positive for trich and patient was treated. Objective: - Physical General Appearance: No Apparent Distress, Obese, HEENTM: PERRLA, poor dentition, missing teeth. 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 10/23/18 15:50 10/23/18 15:54 Laboratory Last Values C. trachomatis (ALFA) Positive (Negative) H 10/15/18 13:20 N.gonorrhoeae DNA (ALFA) Negative (Negative) 10/15/18 13:20 T. vaginalis (ALFA) Negative (Negative) 10/15/18 13:20 Vital Signs (72 hours) 10/21/18 10/21/18 10/22/18 03:30 06:56 00:30 Temperature 98.0 F Pulse Rate 76 Respiratory 28 H 18 18 Rate Blood Pressure 121/80 10/22/18 10/22/18 10/23/18 03:30 07:12 00:30 Temperature 97.6 F Pulse Rate 92 H Respiratory 16 18 16 Rate Blood Pressure 114/75 10/23/18 10/23/18 03:30 07:06 Temperature 97.8 F Pulse Rate 78 Respiratory 18 18 Rate Blood Pressure 125/78 Assessment: Medically stable for discharge Discharge Dx: ETOH dependence Asthma Dependence 10/23/18 15:55 Plan: ON-going continuation of care: Patient will receive aftercare at [facility]. She has an appointment with her primary care provider and plans to re -start PrEP.
[2018-10-23] MEDS: THIAMINE HCL 100 MG TABLET (FP) PO SCH (21:08)
[2018-10-24] MEDS: ALBUTEROL SO4 8 GM HFA INHALER IH PRN (01:25)
[2018-10-24 06:51] VITALS: BP 113/83; PULSE 96; TEMP 97.9
--- NOTE | 2018-10-24 08:44 | PN ---
S Progress Note Note: Psychiatric nurse practitioner note: Patient scheduled for discharge today. A 30 day prescription of Prozac 40m BID was electronically sent to [facility], [address] [place], [place] [id number].
[2018-10-24] MEDS: ACETAMINOPHEN 325 MG TABLET (FP) PO PRN (08:58)
[2018-10-24] MEDS ORDERED: PT OWN MED DRAWER 7, Y5N ONE (09:12)
== END 2018-10-24 09:35 | disposition home or self-care (01) | DRG 772 ==
LOC: YASAS 14:15 → Y3E 14:17
PROVIDERS: ADMIT Surgery; ATTEND Surgery
PROC: HZ42ZZZ Group Counseling for Substance Abuse Treatment, Cognitive-Behavioral (ICD-10-PCS; principal; 2018-10-12)
DX: F10.20 Alcohol dependence, uncomplicated (principal); F17.210 Nicotine dependence, cigarettes, uncomplicated; J45.909 Unspecified asthma, uncomplicated; L98.8 Other specified disorders of the skin and subcutaneous tissue; E66.9 Obesity, unspecified; Z68.34 Body mass index [BMI] 34.0-34.9, adult; Z20.2 Contact with and (suspected) exposure to infections with a predominantly sexual mode of transmission; Z20.6 Contact with and (suspected) exposure to human immunodeficiency virus [HIV]
CPT/HCPCS: 36415; 87491; 87591; 87661